=== PATIENT | female | born 1980 | race Two or more races ===

== ENCOUNTER 2022-07-10 11:29 | Outpatient (CLI) | payer OTHER, SELFPAY ==
--- OUTSIDE RECORDS SUMMARY | 2022-07-22 09:26 | XMS_ITS | Encounter Summary ---
:1980 Author Organization [facility] Address [address], [place] [address] Care Team Providers Name Role Phone No Primary/Referring, Phy Primary Care Provider Unavailable Reason for Visit Consult/Transfer Care (Routine) - Closed Specialty Diagnoses / Procedures Referred By Contact Refer red To Contact Diagnoses Adjustment disorder with mixed anxiety and depressed mood (HRC) Phyllis Weiss, [place] [address] [place], [place] [address] Referral ID Status Reason Start Date Expiration Date Visits Requ ested Visits Authorized [id number] Closed 11/12/2019 02/10/2021 1 1 Encounter Details Date Type Department Care Team Description 12/24/2019 Office Visit [facility] Bianca Ferguson Adju stment disorder Behavioral Sunny Cardoza PsyD, LP with mixed anxiety [address] [place] [place] [address] [address] (Primary Dx) [phone] [place], [place] [address] (Wo rk) Social History Tobacco Use Types Packs/Day Years Used Date Smoking Tobacco: Never Smokeless Tobacco: Never Alcohol Use Standard Drinks/Week Comments Yes 0 (1 standard drink = 0.6 oz pure alcoho l) Sex Assigned at Date Recorded Not on file documented as of this encounter Progress Notes Bianca Ferguson PsyD, LP - 12/24/2019 10:15 AM CST BEHAVIORAL HEALTH DIAGNOSTIC ASSESSMENT IDENTIFYING INFORMATION Length/type of session: Behavioral Health diagnostic assessment, start time: 10:20, end time: 11:13. Brianna Mckenna is a 39 y.o. old female presenting alone for psychotherapy intake. INFORMED CONSENT AND CONFIDENTIALITY: This grant writer's credentials and therapeutic style were discussedwith the patient. The purpose of the evaluation and subsequent counseling sessions were reviewed with the patient. Issues of confidentiality were clearly addressed. The patient expressed understanding of these issues and provided informed consent to proceed. REFERRAL DATA/PRESENTING PROBLEM Presenting problem: anxiety, depression and psychosocial issues Patient referred by: Phyllis Sorensen PCP HISTORY/DESCRIPTION OF PROBLEM(S) Patient is presenting today for individual therapy per the referral of her primary care provider. Patient indicated that she did seek out therapy on her own due to ongoing stress in her life. Patient indicated that the reason she seeking out behavioral health services today is to ???work through some long bring issues regarding family, career, and my patterns of behavior.?? Patient reported this hasbeen going on for over 10 years, but has come to the point where it is more significantly impacting her overall mental health. Patient indicated that a contributing factors that her parents moved from the [facility] to [place]. Patient indicated that she is not only dealing with issues related to aging parents, but personality characteristics in her mother that make it even more challenging. Patient described her mother as somebody who is ???narcissistic, manipulative, and controlling.?? Patient has attended therapy in the past, but maintained that she attended for 2 sessions due to the fact that it was not a good fit. Patient indicated that at times she has felt symptoms of depression and anxiety in the past, but maintained that tends to be more correlated to stress in regards to her career. Additionally, patient has felt this in correlation to both family of origin and family of [facility]. Patient her endorsed symptoms of depression such as sadness, depressed mood, hopelessness, fatigue, low energy, and some feelings of guilt that time. Patient reported that she does notice her anxiety more often than feeling down. 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 Patient indicated that she does recognize that in childhood and adolescent she tended to worry about others perceptions of her and had a hard time trusting others. On average, patient reported that she notices an anxious feeling approximately once per week. Patient endorsed symptoms of anxiety such as heightened anxiety, worry, rumination, sleep disruption (wakes up early), mild nervousness, and feeling overwhelmed. Patient denied any symptoms of panic attacks, joelle, PTSD, learning disabilities, developmental delays, chemical dependency issues, or eating disorders. REVIEW OF PROBLEM/SYMPTOMS PHQ-9 was administered, with a score of 5 DAVID-7 was administered, with a score of 2 AFFECTIVE SYMPTOMS Mood: depressed and worried, Insomnia: Wakes up early, Worthlessness: Reports some feelings of guilt, Suicide ideation: Denies and Self-injurious behavior: Patient reported that at times when she becomes so overwhelmed she will hit herself in the head. Patient indicated this happens maybe 5 or 6 times per year. This is particularly triggered when she is arguing with her . ANXIETY generalized (mild) ADHD - ATTENTION DEFICIT SYMPTOMS None BEHAVIOR PROBLEMS None PSYCHOSIS None OTHER CONCERNS None BEHAVIORAL HEALTH HISTORY Previous therapy: Attended 2 sessions for therapy in April of 2019 Previous psychiatry: None Previous psychiatric hospitalizations: None Previous diagnoses: Adjustment disorder with a mixture of anxiety and depression Previous suicide attempts:None History of violence: None Access to firearms: No History of physical/sexual/abuse: None MEDICAL INFORMATION Primary care physician: No Primary/Referring Other physicians currently involved in care:None Current medical problems/diagnoses: None. Please see electronic medical record for complete information. Chronic pain:No Current medications: Outpatient Medications Prior to Visit Medication Sig Dispense Refill ??? fluticasone propionate (FLONASE) 50 MCG/ACT nasal solution Place 2 Sprays into both nostrils daily. ??? LOW-OGESTREL 0.3-30 MG-MCG tablet Take 1 Tablet by mouth daily. 3 No facility-administered medications prior to visit. CHEMICAL HEALTH HISTORY Tobacco use:None Caffeine use: On average, patient reported that she will have 2 or 3 cups of coffee per day Current substance use: no drugs. 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 Patient reported that they moved around after that. Patient indicated that she has always butted heads with her mother and described her father's more submissive. Patient indicated that her mom is ???narcissistic, manipulative, and controlling.?? Patient has an older [place] who is somewhat disengage from the family. Current living situation: with spouse in house in [place], [place] Significant relationships/marriages: Patient met her in 2006 and they got in 2013 Children: None Family history of psychiatric problems: Alzheimer's-paternal grandfather, manic depressive, mother, depression-mother Family history of substance abuse problems: Alcohol abuse-mother Employment/school history: Patient obtained her undergraduate degree from [employer]. She obtained her master's in [employer] art from [employer]. 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 status: None Additional services: None Amish/spiritual beliefs:None MENTAL STATUS EXAMINATION Appearance: alert, neatly groomed Behavior: cooperative, engaged Motor: normal Gait and Station: normal Speech: normal in rate and loudness Language: intact Thought process: logical and goal-directed Thought content: without delusions, hallucinations or suicidal ideation Associations: intact Mood: anxious, sad Affect: anxious and tearful Orientation: intact Attention: intact Memory: intact Fund of Knowledge: intact Insight: intact Judgement: intact ASSESSMENT Risk of harm to self: none Risk of harm to others: none Based on this intake, the patient has the following diagnoses: Adjustment Disorder with a Mixture of Anxiety and Depression R/o Other Specified Anxiety Clinician's Summary: Patient is presenting today for individual therapy per the referral of her primary care provider. Patient indicated that the reason she seeking out behavioral health services todayis to ???work through some long bring issues regarding family, career, and my patterns of behavior.?? Patient reported this has been going on for over 10 years, but has come to the point where it is more significantly impacting her overall mental health. Patient indicated that at times she has felt symptoms of depression and anxiety in the past, but maintained that tends to be more correlated to stress in regards to her career. Additionally, patient has felt this in correlation to both family of origin and family of creation dynamics. Patient her endorsed symptoms of depression such as sadness, depressed mood, hopelessness, fatigue, low energy, and some feelings of guilt that time. Patient reported that she does notice her anxiety more often than feeling down. 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 Patient indicated that she does recognize that in childhood and adolescent she tended to worry about others perceptions of her and had a hard time trusting others. On average, patient reported that she notices an anxious feeling approximately once per week. Patient endorsed symptoms of anxiety such as heightened anxiety, worry, rumination, sleep disruption (wakes up early), mild nervousness, and feeling overwhelmed. At this time, symptom endorsement by the patient provide support for the diagnosis of an adjustment disorder with a mixture of depression and anxiety. Further investigation into a separate distinct other specified anxiety disorder would occur and ongoing sessions. Clinician did talk with patient about the trajectory of therapy, which would be limited with this provider due to unexpected medical leave end of January. Patient is commuting from [place] and provider gave some recommendations a therapist closer within that area. Patient was welcome to continue therapy with this provider until I go on medically. Clinician also talked about theoretical orientation, expectations for therapy, and limits for confidentiality. Patient was encouraged to return for therapy in approximately 1-2 weeks if she would like to pursue therapy at this particular location. Client reports symptoms of depression and anxiety present Periodically in correlation to stressors with mild intensity, and lead to functional impairment in the following areas: home, occupational, relational and social. INITIAL PLAN Goal 1: Decrease Anxiety by 50% in next 180 days Intervention: Identify 3-5 behavioral and cognitive skills to use to help decreased symptoms. Homework: Monitor triggers, mood, thought process and journal about coping used. Progress: Minimal Goal 2: Decrease Depression by 50% in next 180 days Intervention: Identify 3-5 behavioral and cognitive skills to use to help decreased symptoms. Homework: Monitor triggers, mood, thought process and journal about coping used. Progress: Minimal Anticipated length of treatment: 6-10 sessions. Referrals/Collaboration: primary care physician Bianca Ferguson PsyD, This note was created using speech-recognition software and may contain unintended word substitutions. As a result, wrong word or '[id number]' substitutions may have occurred due to the inherent limitations of voice recognition software. There may be errors in the script that have gone undetected. Please consider this when interpreting information found in this chart. ETIZER OPERATOR documented in this encounter Plan of Treatment Scheduled Referrals Name Type Priority Associated Diagnoses Order S chedule Behavioral Health Referral Routine Adjustment disorder wit h Ordered: 11/12/2019 mixed anxiety and depressed mood documented as of this encounter Visit Diagnoses Diagnosis Adjustment disorder with mixed anxiety a nd depressed mood (HRC) - Primary Adjustment disorder with mixed anxiety a nd depressed mood documented in this encounter Care Teams Security Infrastructure Engineer Relationship Specialty Start Date End Date No Primary/Referring, Phy PCP - General 11/01/19 documented as of this encounter
--- OUTSIDE RECORDS SUMMARY | 2022-07-22 09:26 | XMS_ITS | Clinical Summary ---
:1980 Author Organization [facility] [place] [address] Care Team Providers Name Role Phone Suma Chan MD Primary Care Provider Allergies Active Allergy Reactions Severity Noted Date Comments Penicillins 04/06/2010 Sulfa (Sulfonamide Antibiotics) Hives 7 Medications Medication Sig Dispensed Refills Start Date End Date Status fluticasone (50 mcg per Inhale 1 [place] 1 Bottle 0 05/26/2015 Active actuation) nasal into both solution nostrils once (FLONASE)Indications: daily. Will call Environmental allergies for refill montelukast (SINGULAIR) Take 1 tablet by 90 tablet 3 5 Active 10 mg mouth once daily. tabletIndications: Allergic rhinitis, unspecified allergic rhinitis type norgestrel-ethinyl Take 1 tablet by 84 tablet 0 05/03/2016 Active estradiol, 0.3-30 mouth once daily. mg-mcg, (LOW-OGESTREL) Will call for 0.3-30 mg-mcg refills tabletIndications: Encounter for surveillance of contraceptive pills Active Problems Problem Noted Date Environmental allergies 04/06/2010 Immunizations Name Administration Dates Next Due Hepatitis A (Adult) 11/01/2008, 05/01/2008 Hepatitis B (Adult) 09/09/1997, 04/10/1997, 03/12/1997 Td (Age >=7 Years) 05/11/2000 Tdap 05/01/2008 Tuberculin (PPD) 03/12/1997 Typhoid (injectable) 03/15/2011 Family History Medical History Relation Name Comments Hyperlipidemia Father Hypertension Father Other Mother cysts in breasts that are benign Cancer-breast Paternal Grandmother diagnosed i n 40s Hypertension Paternal Uncle Relation Name Status Comments Father Mother Paternal Grandmother Paternal Uncle Social History Tobacco Use Types Packs/Day Years Used Date Never Smoker Smokeless Tobacco: Never Used Tobacco Cessation: Counseling Given: Yes Alcohol Use Standard Drinks/Week Comments Yes 0 (1 standard drink = 0.6 oz pure alcoho l) weekends Alcohol Habits Answer Date Recorded How often do you have a drink containing alcohol? Not asked How many drinks containing alcohol do you have on a typical Not asked day when you are drinking? How often do you have six or more drinks on one occasion? No t asked Comment: weekends 05/26/2015 Sex Assigned at Date Recorded Not on file Obstetrics History Para Term AB IAB SAB Ectopic Multiple Living Live Births 0 0 0 0 0 0 0 0 0 0 Last Filed Vital Signs Vital Sign Reading Time Taken Comments Blood Pressure 124/82 07/01/2015 3:40 PM CDT Pulse 80 07/01/2015 3:40 PM CDT Temperature 36.8 ??C (98.3 ??F) 07/01/2015 3:40 PM CDT Respiratory Rate - - Oxygen Saturation 99% 07/01/2015 3:40 PM CDT Inhaled Oxygen Concentration - - Weight 70 kg (154 lb 6.4 oz) 07/01/2015 3:40 PM CDT Height 167.7 cm (5' 6.04) 07/01/2015 3:40 PM CDT Body Mass Index 24.89 07/01/2015 3:40 PM CDT Plan of Treatment Health Maintenance Due Date Last Done Comments COVID-19 vaccine series (#1) 1980 Depression screening for age 12+ 1991 BMI (ht and wt on same day) for 1997 age 18+ Hepatitis C screening for age 0301/15/1997 18-79 Tetanus booster 05/01/2018 05/01/2008, 05/11/2000 Pap test for age 21-65 07/13/2021 07/13/2018, 07/13/2018, 05/26/2015, Additional history exists Influenza for age 9-49 06/23/2022 Tdap Completed 05/01/2008 Results Not on filefrom Last 3 Months Insurance Payer Benefit Plan / Subscriber ID Effective Dates Phone Addre ss Type Group [employer] [id number] 2014-Present [address] [place] [address] (Home) [place] [address] Care Teams Flume Worker Relationship Specialty Start Date End Date Suma Chan MD PCP - General Internal Medicine 06/29/18
--- OUTSIDE RECORDS SUMMARY | 2022-07-22 09:26 | XMS_ITS | Encounter Summary ---
:1980 Author [facility] Address [address], [place] [address] Care Team Providers Name Role Phone No Primary/Referring, Phy Primary Care Provider Unavailable Reason for Referral Consult/Transfer Care (Routine) - Closed Specialty Diagnoses / Procedures Referred By Contact Refer red To Contact Diagnoses Adjustment disorder with mixed anxiety and depressed mood (HRC) Phyllis Weiss PA-C [address] [place], [place] [address] Referral ID Status Reason Start Date Expiration Date Visits Requ ested Visits Authorized [id number] Closed 11/12/2019 02/10/2021 1 1 Scheduling Instructions Your provider has recommended an appoint ment with Behavioral Health. You may call [phone] to schedule your appointmen t. This recommended service/s may not be covered by your health plan (health insu vika). To find out your specific benefit coverage, please call the number on your insurance card.?? Please note that in order to maintain access for all patients, [facility] does have a late cancellation policy.?? In order to avoid being restri cted from scheduling future appointments in Behavioral Health you will need to cance l at least 48 hours in advance. We request you that you arrive 30 minutes before yo ur first appointment to complete paperwork. SERVICE DEMONSTRATOR Reason for Visit Reason Comments Establish Care REFERRAL REQUEST Health Maintenance Communication Encounter Details Date Type Department Care Team Description 11/12/2019 Office Visit [facility] Phyllis Weiss, Adj ustment disorder Practice PA-C with mixed anxiety and [address] [facility] [address] depressed mood [place], [place] ([place] Dx) [id number] Social History Tobacco Use Types Packs/Day Years Used Date Smoking Tobacco: Never Smokeless Tobacco: Never Alcohol Use Standard Drinks/Week Comments Yes 0 (1 standard drink = 0.6 oz pure alcoho l) Sex Assigned at Date Recorded Not on file documented as of this encounter Last Filed Vital Signs Vital Sign Reading Time Taken Comments Blood Pressure 126/80 11/12/2019 2:30 PM HOME SERVICE DEMONSTRATOR Pulse 63 11/12/2019 2:30 PM HOME SERVICE DEMONSTRATOR Temperature 36.7 ??C (98 ??F) 11/12/2019 2:30 PM HOME SERVICE DEMONSTRATOR Respiratory Rate 12 11/12/2019 2:30 PM HOME SERVICE DEMONSTRATOR Oxygen Saturation - - Inhaled Oxygen Concentration - - Weight 75.4 kg (166 lb 4 oz) 11/12/2019 2:30 PM HOME SERVICE DEMONSTRATOR Height 167.6 cm (5' 6) 11/12/2019 2:30 PM HOME SERVICE DEMONSTRATOR Body Mass Index 26.83 11/12/2019 2:30 PM HOME SERVICE DEMONSTRATOR documented in this encounter Progress Notes Phyllis Weiss PA-C - 11/12/2019 2:20 PM CST Historical: Chief Complaint Patient presents with ??? Establish Care ??? REFERRAL REQUEST BH ??? Health Maintenance Communication Pt is here today to establish care and to get a referral for BH. Past couple of years has had gradually worsening mood symptoms. Her parents moved to [place] from the [facility] to be closer to her. 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 No past diagnosis of depression or anxiety. No therapy or medication. Not interested in medications at this time. I have personally reviewed the patient's allergies, medications and past medical history in detail and updated the patient record as necessary. Observed: BP 126/80 (BP Location: Right Arm, BP Cuff Size: Large) Pulse 63 Temp 98 ??F (36.7 ??C) (Oral) Resp 12 Ht 5' 6 (1.676 m) Wt 166 lb 4 oz (75.4 kg) BMI 26.83 kg/m?? Physical Exam: General Appearance: alert, well appearing and in no apparent distress. Tearful at times. Neurologic: normal speech and alert and oriented x 3 Psychiatric: affect/mood normal, cooperative, normal judgement/insight and memory intact Assessment/Plan: Adjustment disorder with mixed anxiety and depressed mood (HRC) - Behavioral Health Consider BTB Reach out if she changes her mind regarding medications. Adequate sleep, water, diet, regular exercise. Please see orders and patient instructions Phyllis Weiss PA-C SERVICE DEMONSTRATOR documented in this encounter Plan of Treatment Scheduled Referrals Name Type Priority Associated Diagnoses Order [facility] Behavioral Health Referral Routine Adjustment disorder wit h Ordered: 11/12/2019 mixed anxiety and depressed mood documented as of this encounter Visit Diagnoses Diagnosis Adjustment disorder with mixed anxiety a nd depressed mood (HRC) - Primary Adjustment disorder with mixed anxiety a nd depressed mood documented in this encounter Care Teams Cream Ripener Relationship Specialty Start Date End Date No Primary/Referring, Ramony PCP - General 11/01/19 documented as of this encounter
== END 2022-07-10 11:30 | disposition home or self-care (01) ==
LOC: NFLDREF 07-22 09:25
PROVIDERS: PCP Internal Medicine; Visit Provider Nurse Practitioner Family
DX: R30.0 Dysuria (principal); N39.0 Urinary tract infection, site not specified
CPT/HCPCS: 87086; 87186

== ENCOUNTER 2022-07-22 10:04 | Outpatient (CLI) | payer OTHER, SELFPAY ==
--- OUTSIDE RECORDS SUMMARY | 2022-07-22 10:14 | XMS_ITS | Encounter Summary ---
:1980 Author Organization [facility] Address [address], [place] [address] Care Team Providers Name Role Phone No Primary/Referring, Phy Primary Care Provider Unavailable Reason for Referral Consult/Transfer Care (Routine) - Closed Specialty Diagnoses / Procedures Referred By Contact Refer red To Contact Diagnoses Adjustment disorder with mixed anxiety and depressed mood (HRC) Phyllis Weiss PA-C [address] [place], [place] [address] Referral ID Status Reason Start Date Expiration Date Visits Requ ested Visits Authorized [id number] Closed 11/12/2019 02/10/2021 1 1 Scheduling Instructions Your provider has recommended an appoint ment with Behavioral Health. You may call [phone] to schedule your appointmen t. This recommended service/s may not be covered by your health plan (health insu vika). To find out your specific benefit coverage, please call the number on your insurance card.?? Please note that in order to maintain access for all patients, [facility] does have a late cancellation policy.?? In order to avoid being restri cted from scheduling future appointments in Behavioral Health you will need to cance l at least 48 hours in advance. We request you that you arrive 30 minutes before yo ur first appointment to complete paperwork. RIMENTAL ELECTRONICS DEVELOPER Reason for Visit Reason Comments Establish Care REFERRAL REQUEST Health Maintenance Communication Encounter Details Date Type Department Care Team Description 11/12/2019 Office Visit [facility] Phyllis Weiss, Adj ustment disorder Practice PA-C with mixed anxiety and [address] [facility] [address] depressed mood [place], [place] ([place]) [id number] Social History Tobacco Use Types Packs/Day Years Used Date Smoking Tobacco: Never Smokeless Tobacco: Never Alcohol Use Standard Drinks/Week Comments Yes 0 (1 standard drink = 0.6 oz pure alcoho l) Sex Assigned at Date Recorded Not on file documented as of this encounter Last Filed Vital Signs Vital Sign Reading Time Taken Comments Blood Pressure 126/80 11/12/2019 2:30 PM EXPERIMENTAL ELECTRONICS DEVELOPER Pulse 63 11/12/2019 2:30 PM EXPERIMENTAL ELECTRONICS DEVELOPER Temperature 36.7 ??C (98 ??F) 11/12/2019 2:30 PM EXPERIMENTAL ELECTRONICS DEVELOPER Respiratory Rate 12 11/12/2019 2:30 PM EXPERIMENTAL ELECTRONICS DEVELOPER Oxygen Saturation - - Inhaled Oxygen Concentration - - Weight 75.4 kg (166 lb 4 oz) 11/12/2019 2:30 PM EXPERIMENTAL ELECTRONICS DEVELOPER Height 167.6 cm (5' 6) 11/12/2019 2:30 PM EXPERIMENTAL ELECTRONICS DEVELOPER Body Mass Index 26.83 11/12/2019 2:30 PM EXPERIMENTAL ELECTRONICS DEVELOPER documented in this encounter Progress Notes Phyllsi Weiss PA-C - 11/12/2019 2:20 PM CST Historical: Chief Complaint Patient presents with ??? Establish Care ??? REFERRAL REQUEST BH ??? Health Maintenance Communication Pt is here today to establish care and to get a referral for BH. Past couple of years has had gradually worsening mood symptoms. Her parents moved to [place] from the [facility] to be closer to her. She [...] orders and patient instructions Phyllis Weiss PA-C RIMENTAL ELECTRONICS DEVELOPER documented in this encounter Plan of Treatment Scheduled Referrals Name Type Priority Associated Diagnoses Order S [facility] Behavioral Health Referral Routine Adjustment disorder wit h Ordered: 11/12/2019 mixed anxiety and depressed mood documented as of this encounter Visit Diagnoses Diagnosis Adjustment disorder with mixed anxiety a nd depressed mood (HRC) - Primary Adjustment disorder with mixed anxiety a nd depressed mood documented in this encounter Care Teams Relay Telegrapher Relationship Specialty Start Date End Date No Primary/Referring, Ramony PCP - General 11/01/19 documented as of this encounter
--- OUTSIDE RECORDS SUMMARY | 2022-07-22 10:14 | XMS_ITS | Clinical Summary ---
:1980 Author Organization [facility] [place] [address] Care Team Providers Name Role Phone Suma Chan MD Primary Care Provider Allergies Active Allergy Reactions Severity Noted Date Comments Penicillins 04/06/2010 Sulfa (Sulfonamide Antibiotics) Hives 7 Medications Medication Sig Dispensed Refills Start Date End Date Status fluticasone (50 mcg per Inhale 1 [place] 1 Bottle 0 05/26/2015 Active actuation) nasal [...] Addre ss Type Group [facility] HP [id number] 2014-Present [address] [place] [address] (Home) [place] [address] Care Teams Pantry Worker Relationship Specialty Start Date End Date Suma Chan MD PCP - General Internal Medicine 06/29/18
--- OUTSIDE RECORDS SUMMARY | 2022-07-22 10:14 | XMS_ITS | Clinical Summary ---
:1980 Author Organization [facility] Address [address], [place] [address] Care Team Providers Name Role Phone No Primary/Referring, Phy Primary Care Provider Unavailable Source Comments You are receiving this document as you are listed as the primary care provider,follow-up provider, or the patient has been referred to you for consultation.This is in compliance with the Medicare and Medicaid EHR Incentive Program,which states Providers who transition their patient to another setting of careor provider of care or refers their patient to another provider of care shouldprovide summarycare record for each transition of care or referral. [facility] Allerg[facility] Active Allergy Reactions Severity Noted Date Comments Penicillins Other, see comments 11/12/2019 Told whe n she had allergy testing Sulfa Antibiotics Hives High 11/12/2019 Medications Medication Sig Dispensed Refills Start Date End Date Status LOW-OGESTREL 0.3-30 Take 1 Tablet by 3 10/14/2019 Active MG-MCG tablet mouth daily. fluticasone propionate Place 2 Sprays 0 Active (FLONASE) 50 MCG/ACT into both nostrils nasal solution daily. Active Problems No known active problems Immunizations Name Administration Dates Next Due Flublok (RIV4) 07/18/2019 Tdap 07/13/2018, 05/01/2008 Social History Tobacco Use Types Packs/Day Years Used Date Smoking Tobacco: Never Smokeless Tobacco: Never Alcohol Use Standard Drinks/Week Comments Yes 0 (1 standard drink = 0.6 oz pure alcoho l) Sex Assigned at Date Recorded Not on file Last Filed Vital Signs Vital Sign Reading Time Taken Comments Blood Pressure 126/80 11/12/2019 2:30 PM DIRECTOR OF STUDENT FINANCIAL SERVICES Pulse 63 11/12/2019 2:30 PM DIRECTOR OF STUDENT FINANCIAL SERVICES Temperature 36.7 ??C (98 ??F) 11/12/2019 2:30 PM DIRECTOR OF STUDENT FINANCIAL SERVICES Respiratory Rate 12 11/12/2019 2:30 PM DIRECTOR OF STUDENT FINANCIAL SERVICES Oxygen Saturation - - Inhaled Oxygen Concentration - - Weight 75.4 kg (166 lb 4 oz) 11/12/2019 2:30 PM DIRECTOR OF STUDENT FINANCIAL SERVICES Height 167.6 cm (5' 6) 11/12/2019 2:30 PM DIRECTOR OF STUDENT FINANCIAL SERVICES Body Mass Index 26.83 11/12/2019 2:30 PM DIRECTOR OF STUDENT FINANCIAL SERVICES Plan of Treatment Health Maintenance Due Date Last Done Comments Hep C Screening (Preventive 1980 Services) HepB (1) 1980 COVID-19 Vaccine (#1) 1980 HIV Screening (Preventive 1995 Services) Adult Preventive Visit 1997 Mammogram 11/12/2020 11/12/2019 (Completed) Influenza (#1) 2022 07/06/2020, 07/18/2019, 07/13/2018, Additional history exists Pap 07/13/2023 07/13/2018 (Completed) DTaP/Tdap/Td (3 - Tdap) 07/13/2028 07/13/2018, 05/01/2008, 05/11/2000 Zoster/Shingles (1 of 2) 2029 HepA Aged Out 11/01/2008, 05/01/2008 No longer eligible based on patient 's age to complete this topic HPV Vaccine Aged Out No longer eligib le based on patient 's age to complete this topic Hib Aged Out No longer eligib le based on patient 's age to complete this topic IPV (Polio) Aged Out No longer eligib le based on patient 's age to complete this topic MCV4 Aged Out No longer eligib le based on patient 's age to complete this topic Pneumococcal Aged Out No longer eligib le based on patient 's age to complete this topic Insurance Payer Benefit Plan / Subscriber ID Effective Dates Phone Addre ss Type Group [facility] SELF INSURED [id number] 2014-Present Commercial Care Teams Mailing Specialist Relationship Specialty Start Date End Date No Primary/Referring, Phy PCP - General 11/01/19
--- OUTSIDE RECORDS SUMMARY | 2022-07-22 10:14 | XMS_ITS | Encounter Summary ---
:1980 Author Organization [facility] Address [address] [address] Care Team Providers Name Role Phone No Primary/Referring, Phy Primary Care Provider Unavailable Reason for Visit Consult/Transfer Care (Routine) - Closed Specialty Diagnoses / Procedures Referred By Contact Refer red To Contact Diagnoses Adjustment disorder with mixed anxiety and depressed mood (HRC) Phyllis Weiss, SUNNY [address] [place], [place] [address] Referral ID Status Reason Start Date Expiration Date Visits Requ ested Visits Authorized [id number] Closed 11/12/2019 02/10/2021 1 1 Encounter Details Date Type Department Care Team Description 12/24/2019 Office Visit [facility] Bianca Ferguson Adju stment disorder Behavioral Sunny Cardoza PsyD, LP with mixed anxiety [address] [place] [address] [address] (Primary Dx) [phone] [place], [place] [address] (Wo rk) Social History [...] psychotherapy intake. INFORMED CONSENT AND CONFIDENTIALITY: This check writer salesperson's credentials and therapeutic style were discussedwith the [...] factors that her parents moved from the [facility] to [place]. Patient indicated that she is not only [...] family of origin and family of [facility]. 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 [...] living situation: with spouse in house in [place], [place] Significant relationships/marriages: Patient met her in 2006 and they got in 2013 Children: None Family history of psychiatric problems: Alzheimer's-paternal grandfather, manic depressive, mother, depression-mother Family history of substance abuse problems: Alcohol abuse-mother Employment/school history: Patient obtained her undergraduate degree from [employer]. She obtained her master's in [email or web address] art from [employer]. 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 Patient indicated that she does recognize that [...] end of January. Patient is commuting from [place] and provider gave some recommendations a therapist [...] substitutions. As a result, wrong word or '[id number]-j-[id number]' substitutions may have occurred due to the inherent limitations of voice recognition software. There may be errors in the script that have gone undetected. Please consider this when interpreting information found in this chart. RIAL RECLAIMER documented in this encounter Plan of Treatment [...] mood documented in this encounter Care Teams Haulpak Driver Relationship Specialty Start Date End Date No Primary/Referring, Phy PCP - General 11/01/19 documented as of this encounter
== END 2022-07-22 10:05 | disposition home or self-care (01) ==
LOC: NFLDREF 10:05
PROVIDERS: PCP Internal Medicine; Visit Provider Family Medicine
DX: N39.0 Urinary tract infection, site not specified (principal)
CPT/HCPCS: 87086

== ENCOUNTER 2022-09-12 08:04 | Outpatient (CLI) | payer OTHER, SELFPAY ==
--- OUTSIDE RECORDS SUMMARY | 2022-09-12 08:07 | XMS_ITS | Clinical Summary ---
:1980 Author Organization [facility] [place] [address] Care Team Providers Name Role Phone Suma Chan MD Primary Care Provider Allergies Active Allergy Reactions Severity Noted Date Comments Penicillins 04/06/2010 Sulfa (Sulfonamide Antibiotics) Hives 7 Medications Medication Sig Dispensed Refills Start Date End Date Status fluticasone (50 mcg per Inhale 1 [place] 1 Bottle 0 05/26/2015 Active actuation) nasal [...] Addre ss Type Group [facility] [employer] HP [id number] 2014-Present [address] [place] [address] (Home) [place] [address] Care Teams Milk Pickup Driver Relationship Specialty Start Date End Date Suma Chan MD PCP - General Internal Medicine 06/29/18
--- OUTSIDE RECORDS SUMMARY | 2022-09-12 08:07 | XMS_ITS | Encounter Summary ---
:1980 Author Organization [facility] Address [address] [place] [address] Care Team Providers Name Role Phone No Primary/Referring, Phy Primary Care Provider Unavailable Reason for Referral Consult/Transfer Care (Routine) - Closed Specialty Diagnoses / Procedures Referred By Contact Refer red To Contact Diagnoses Adjustment disorder with mixed anxiety and depressed mood (HRC) Phyllis Weiss PA-C [address] [place], [place] [address] Referral ID Status Reason Start Date Expiration Date Visits Requ ested Visits Authorized [id number] Closed 11/12/2019 02/10/2021 1 1 Scheduling Instructions Your provider has recommended an appoint ment with Behavioral Health. You may call [phone] to schedule your appointmen t. This recommended service/s may not be covered by your health plan (health insu vika). To find out your specific benefit coverage, please call the number on your insurance card.?? Please note that in order to maintain access for all patients, [facility] does have a late cancellation policy.?? In order to avoid being restri cted from scheduling future appointments in Behavioral Health you will need to cance l at least 48 hours in advance. We request you that you arrive 30 minutes before yo ur first appointment to complete paperwork. TECHNICIAN Reason for Visit Reason Comments Establish Care REFERRAL REQUEST Health Maintenance Communication Encounter Details Date Type Department Care Team Description 11/12/2019 Office Visit [facility] Phyllis Weiss, Adj ustment disorder Practice SUNNY with mixed anxiety and [address] [facility] [address] depressed mood [place], [place] ([place]x) [address] [phone] Social History Tobacco Use Types Packs/Day Years Used Date Smoking Tobacco: Never Smokeless Tobacco: Never Alcohol Use Standard Drinks/Week Comments Yes 0 (1 standard drink = 0.6 oz pure alcoho l) Sex Assigned at Date Recorded Not on file documented as of this encounter Last Filed Vital Signs Vital Sign Reading Time Taken Comments Blood Pressure 126/80 11/12/2019 2:30 PM LAB TECHNICIAN Pulse 63 11/12/2019 2:30 PM LAB TECHNICIAN Temperature 36.7 ??C (98 ??F) 11/12/2019 2:30 PM LAB TECHNICIAN Respiratory Rate 12 11/12/2019 2:30 PM LAB TECHNICIAN Oxygen Saturation - - Inhaled Oxygen Concentration - - Weight 75.4 kg (166 lb 4 oz) 11/12/2019 2:30 PM LAB TECHNICIAN Height 167.6 cm (5' 6) 11/12/2019 2:30 PM LAB TECHNICIAN Body Mass Index 26.83 11/12/2019 2:30 PM LAB TECHNICIAN documented in this encounter Progress Notes Phyllis Weiss PA-C - 11/12/2019 2:20 PM CST Historical: Chief Complaint Patient presents with ??? Establish Care ??? REFERRAL REQUEST BH ??? Health Maintenance Communication Pt is here today to establish care and to get a referral for BH. Past couple of years has had gradually worsening mood symptoms. Her parents moved to [place] from the [facility] to be [...] orders and patient instructions Phyllis Weiss PA-C TECHNICIAN documented in this encounter Plan of Treatment Scheduled Referrals Name Type Priority Associated Diagnoses Order S [facility] Behavioral Health Referral Routine Adjustment disorder wit h Ordered: 11/12/2019 mixed anxiety and depressed mood documented as of this encounter Visit Diagnoses Diagnosis Adjustment disorder with mixed anxiety a nd depressed mood (HRC) - Primary Adjustment disorder with mixed anxiety a nd depressed mood documented in this encounter Care Teams Bingo Usher Relationship Specialty Start Date End Date No Primary/Referring, Phy PCP - General 11/01/19 documented as of this encounter
--- OUTSIDE RECORDS SUMMARY | 2022-09-12 08:07 | XMS_ITS | Encounter Summary ---
:1980 Author [facility] Address [address] [place] [address] Care Team Providers Name Role Phone No Primary/Referring, Phy Primary Care Provider Unavailable Reason for Visit Consult/Transfer Care (Routine) - Closed Specialty Diagnoses / Procedures Referred By Contact Refer red To Contact Diagnoses Adjustment disorder with mixed anxiety and depressed mood (HRC) Phyllis Weiss, PAJalynC [address] [place], [place] [address] Referral ID Status Reason Start Date Expiration Date Visits Requ ested Visits Authorized [id number] Closed 11/12/2019 02/10/2021 1 1 Encounter Details Date Type Department Care Team Description 12/24/2019 Office Visit [facility] Bianca Ferguson Adju stment disorder Behavioral Sunny Cardoza PsyD, LP with mixed anxiety [address] [place] [place] [address] [address] (Primary Dx) [phone] [place], [place] [address] (Wo rk) Social History [...] psychotherapy intake. INFORMED CONSENT AND CONFIDENTIALITY: This technical proposal writer's credentials and therapeutic style were discussedwith [...] factors that her parents moved from the [facility] to [place]. Patient indicated that she is not only [...] family of origin and family of creation [facility]. 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 [...] living situation: with spouse in house in [place], [place] Significant relationships/marriages: Patient met her in 2006 and they got in 2013 Children: None Family history of psychiatric problems: Alzheimer's-paternal grandfather, manic depressive, mother, depression-mother Family history of substance abuse problems: Alcohol abuse-mother Employment/school history: Patient obtained her undergraduate degree from [employer]. She obtained her master's in [employer] art from [employer]. 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 Patient indicated that she does recognize that [...] end of January. Patient is commuting from [place] and provider gave some recommendations a therapist [...] substitutions. As a result, wrong word or 'bfbpl-x-[id number]' substitutions may have occurred due to the inherent limitations of voice recognition software. There may be errors in the script that have gone undetected. Please consider this when interpreting information found in this chart. SACKER documented in this encounter Plan of Treatment Scheduled Referrals Name Type Priority Associated Diagnoses Order S [facility] Referral Routine Adjustment disorder wit h Ordered: 11/12/2019 mixed anxiety and depressed mood documented as of this encounter Visit Diagnoses Diagnosis Adjustment disorder with mixed anxiety a nd depressed mood (HRC) - Primary Adjustment disorder with mixed anxiety a nd depressed mood documented in this encounter Care Teams Library Assistant Relationship Specialty Start Date End Date No Primary/Referring, Phy PCP - General 11/01/19 documented as of this encounter
--- OUTSIDE RECORDS SUMMARY | 2022-09-12 08:07 | XMS_ITS | Clinical Summary ---
:1980 Author Organization [facility] Address [address], [place] [address] Care Team Providers Name Role Phone No [...] for each transition of care or referral. [facility] Allergies Active Allergy Reactions Severity Noted Date [...] Comments Blood Pressure 126/80 11/12/2019 2:30 PM LEAD PONY RIDER Pulse 63 11/12/2019 2:30 PM LEAD PONY RIDER Temperature 36.7 ??C (98 ??F) 11/12/2019 2:30 PM LEAD PONY RIDER Respiratory Rate 12 11/12/2019 2:30 PM LEAD PONY RIDER Oxygen Saturation - - Inhaled Oxygen Concentration - - Weight 75.4 kg (166 lb 4 oz) 11/12/2019 2:30 PM LEAD PONY RIDER Height 167.6 cm (5' 6) 11/12/2019 2:30 PM LEAD PONY RIDER Body Mass Index 26.83 11/12/2019 2:30 PM LEAD PONY RIDER Plan of Treatment Health Maintenance Due Date [...] Addre ss Type Group [employer] SELF INSURED [id number] 2014-Present Commercial Care Teams Joint Maker Machine Relationship Specialty Start Date End Date No Primary/Referring, Phy PCP - General 11/01/19
--- NOTE | 2022-09-12 08:15 | CRLHL7_ITS ---
For Patients: As a result of the Century Cures Act, medical imaging exams and procedure reports are released immediately into your electronic medical record. You may view this report before your referring provider. If you have questions, please contact your health care provider. BILATERAL SCREENING MAMMOGRAM WITH COMPUTER-AIDED DETECTION AND TOMOSYNTHESIS TECHNIQUE: CC and MLO views were obtained. These mammographic images have been obtained using full-field digital technique. These mammographic images were interpreted with the benefit of computer-aided detection. Breast Tomosynthesis was used in this interpretation. COMPARISON FILM: 09/09/21, 09/03/20, 07/24/19. FINDINGS: The breasts are heterogeneously dense, which may obscure small masses IMPRESSION: There is no radiographic evidence for malignancy. ASSESSMENT: BI-RADS Category 1: Negative RECOMMENDATION: Routine screening mammogram in 1 year. A lay language report of this examination will be provided to the patient. Vinod Whittington M.D. Diagnostic Radiologist [email or web address] BEN/Dictated by: Vinod Whittington MD @ 09/12/2022 9:37:00 AM (Electronically Signed)
== END 2022-09-12 08:05 | disposition home or self-care (01) ==
LOC: MAMMO 08:05
PROVIDERS: PCP Internal Medicine; Visit Provider Internal Medicine
DX: Z12.31 Encounter for screening mammogram for malignant neoplasm of breast (principal); R92.2 Inconclusive mammogram
CPT/HCPCS: 77063; 77067

== ENCOUNTER 2023-09-11 08:00 | Outpatient (CLI) | payer OTHER, SELFPAY | END 2023-09-11 08:01 | disposition home or self-care (01) | LOC: NFLDREF 09-15 10:33 | PROVIDERS: PCP Internal Medicine; Referring Provider Internal Medicine; Visit Provider Obstetrics & Gynecology | DX: Z00.00 Encounter for general adult medical examination without abnormal findings (principal); Z13.6 Encounter for screening for cardiovascular disorders | CPT/HCPCS: 80061 ==

== ENCOUNTER 2023-09-13 09:02 | Outpatient (CLI) | payer OTHER, SELFPAY ==
--- NOTE | 2023-09-13 09:15 | CRLHL7_ITS ---
For Patients: As a result of the Century Cures Act, medical imaging exams and procedure reports are released immediately into your electronic medical record. You may view this report before your referring provider. If you have questions, please contact your health care provider. BILATERAL SCREENING MAMMOGRAM WITH COMPUTER-AIDED DETECTION AND TOMOSYNTHESIS TECHNIQUE: CC and MLO views were obtained. These mammographic images have been obtained using full-field digital technique. These mammographic images were interpreted with the benefit of computer-aided detection. Breast Tomosynthesis was used in this interpretation. COMPARISON FILM: 09/12/22, 09/09/21, 09/03/20. FINDINGS: The breasts are heterogeneously dense, which may obscure small masses IMPRESSION: There is no radiographic evidence for malignancy. ASSESSMENT: BI-RADS Category 1: Negative RECOMMENDATION: Routine screening mammogram in 1 year. A lay language report of this examination will be provided to the patient. Vinod Whittington M.D. Diagnostic Radiologist [email or web address] BEN/Dictated by: Vinod Whittington MD @ 09/13/2023 1:27:00 PM (Electronically Signed)
== END 2023-09-13 09:03 | disposition home or self-care (01) ==
LOC: MAMMO 09:03
PROVIDERS: PCP Internal Medicine; Visit Provider Internal Medicine
DX: Z12.31 Encounter for screening mammogram for malignant neoplasm of breast (principal); R92.2 Inconclusive mammogram
CPT/HCPCS: 77063; 77067

== ENCOUNTER 2024-09-16 11:18 | Outpatient (CLI) | payer OTHER, SELFPAY ==
--- OUTSIDE RECORDS SUMMARY | 2024-09-16 11:22 | XMS_ITS | Clinical Summary ---
Author Organization [facility] Address [place], [place] [address] Care Team Providers Care Practicing Dermatologist Name Role Phone Suma Chan MD Primary Care Provider [phone] Allergies Active Allergy Reactions Criticality Noted Date Comments Penicillins 04/06/2010 Sulfa (Sulfonamide Antibiotics) Hives 07/23 Medications Medication Sig Dispensed Refills Start Date End Date Status fluticasone (50 mcg per actuation) nasal solution (FLONASE)Indications:E nvironmental allergies Inhale 1 Jackson into both nostrils once daily. Will call for refill 1 Bottle PRN 05/26/2015 Active montelukast (SINGULAIR) 10 mg tabletIndications:Chandra rgic rhinitis, unspecified allergic rhinitis type Take 1 tablet by mouth once daily. 90 tablet 3 07/01/2015 Active norgestrel-ethinyl estradiol, 0.3-30 mg-mcg, (LOW-OGESTREL) 0.3-30 mg-mcg tabletIndications:Enco unter for surveillance of contraceptive pills Take 1 tablet by mouth once daily. Will call for refills 84 tablet 0 05/03/2016 Active Active Problems Problem Noted Date Diagnosed Date Environmental allergies 04/06/2010 Immunizations Name Administration Dates Next Due Hepatitis A (Adult) 11/01/2008,05/01/2008 Hepatitis B (Adult) 09/09/1997,04/10/1997,1996 Td (Age >=7 Years) 05/11/2000 Tdap 05/01/2008 Tuberculin (PPD) 03/12/1997 Typhoid (injectable) 03/15/2011 Family History Medical History Relation Name Comments Hyperlipidemia Father Hypertension Father Other Mother cysts in breast s that are benign Cancer-breast Paternal Grandmother diagno sed in 40s Hypertension Paternal Uncle Relation Name Status Comments Father Mother Paternal Grandmother Paternal Uncle Social History Tobacco Use Types Packs/Day Years Used Date Smoking Tobacco: Never Smokeless Tobacco: Never Tobacco Cessation:Counseling Given: Yes Alcohol Use Standard Drinks/Week Comments Yes 0 (1 standard drink = 0.6 oz pur e alcohol) weekends Sex and Gender Information Value Date Recorded Sex Assigned at Not on file Gender Identity Not on file Sexual Orientation Not on file Obstetrics History Para Term AB IAB SAB Ectopic Multiple Livin g Live Births 0 0 0 0 0 0 0 0 0 0 Last Filed Vital Signs Vital Sign Reading Time Taken Comments Blood Pressure 124/82 07/01/2015 3:40 PM CDT Pulse 80 07/01/2015 3:40 PM CDT Temperature 36.8 C (98.3 F) 07/01/2015 3:40 PM CDT Respiratory Rate - - Oxygen Saturation 99% 07/01/2015 3:40 PM CDT Inhaled Oxygen Concentration - - Weight 70 kg (154 lb 6.4 oz) 07/01/2015 3:40 PM CDT Height 167.7 cm (5' 6.04) 07/01/2015 3:40 PM CD T Body Mass Index 24.89 07/01/2015 3:40 PM CDT Plan of Treatment Health Maintenance Due Date Last Done Comments Depression screening for age 12+ 1991 BMI (ht and wt on same day) for age 18+ 1997 Hepatitis C screening for age 18-79 1997 Tetanus booster 05/01/2018 05/01/2008, 05/11/2000 Colonoscopy through age 75 01/16/2024 Lipids for age 45-75 01/16/2024 05/13/2014, 04/02/2013, 03/07/2012, Additional history exists Mammogram for age 45-75 01/16/2024 COVID-19 vaccine series (2023- season) 2024 Influenza for age 9-49 06/23/2024 Pap test for age 21-65 09/07/2026 3, 07/13/2018, 07/13/2018, Additional history exists HIV for age 15-65 Completed 05/01/2008 Tdap Completed 05/01/2008 Pneumococcal series for age 6-64 Aged Out No longer eligible based on patient's age to complete this topic Procedures Procedure Name Priority Date/Time Associated Diagnosis Comments HPV HIGH RISK Routine 09/07/2023 8:45 AM CLIENT DEVELOPMENT DIRECTOR LIPID PANEL W REFLEX MEASURED LDL Routine 05/13/2014 8:35 AM CDT Screening, lipid ANTI HIV 1/2 Routine 05/01/2008 9:23 AM CDT Screening Exam Venereal Disease from Last 3 Months or Most Recently Relevant to Health Maintenance Results * HPV HIGH RISK (09/07/2023 8:45 AM CLIENT DEVELOPMENT DIRECTOR) TYPE 16 Negative Negative 09/09/2023 1:14 PM CLIENT DEVELOPMENT DIRECTOR [facility] TYPE 18 Negative Negative 09/09/2023 1:14 PM CLIENT DEVELOPMENT DIRECTOR [facility] OTHER HIGH RISK TYPES Negative Negative 09/09/2023 1:14 PM CLIENT DEVELOPMENT DIRECTOR [facility] Other (Cervical) 09/07/2023 8:45 AM CLIENT DEVELOPMENT DIRECTOR 09/07/2023 8:56 AM CLIENT DEVELOPMENT DIRECTOR Narrative [facility] - 09/09/2023 1:14 PM CLIENT DEVELOPMENT DIRECTOR HPV types 16, 18, 31, 33, 35, 39, 45, 51, 52, 56, 58, 59, 66 and 68 DNA were undetectable or below the pre-set threshold. Methodology: Patricia Waylon 4800 HPV Test Dorene Maral Rico MD [facility]CROBIOLOGY [facility] [address] [place] [address], * LIPID PANEL W REFLEX MEASURED LDL (05/13/2014 8:35 AM CDT) CHOLESTEROL,TOTAL 174 100 - 199 mg/dL 05/13/2014 9:02 AM CDT [facility] TRIGLYCERIDES 76 <150 mg/dL 05/13/2014 9:02 AM CDT [facility] HDL CHOLESTEROL 65 >40 mg/dL 4 9:02 AM CDT [facility] NON-HDL CHOLESTEROL 109 <145 mg/dl 05/13/2014 9:02 AM CDT [facility] CHOL/HDL RATIO 2.68 <4.50 05/13/2014 9:02 AM CDT [facility] LDL CHOLESTEROL 94 <=130 mg/dL 05/13/2014 9:02 AM CDT [facility] PATIENT STATUS FASTING 05/13/2014 9:02 AM CDT [facility] Blood specimen (specimen) BLOOD SPECIMEN / Unknown Venipuncture / Unknown 05/13/2014 8:35 AM CDT 05/13/2014 8:36 AM CDT Samantha Patel NP CHEMISTRY [facility] [address] [place] [address], * ANTI HIV 1/2 (05/01/2008 9:23 AM CDT) ANTI HIV 1/2 Non-reacti ve [facility] Blood specimen (specimen) BLOOD SPECIMEN / Unknown 05/01/2008 9:23 AM CDT 05/01/2008 9:16 AM CDT Samantha Patel NP SEND OUTS [facility] [place]NAL ZIP [address] [place] [id number] from Last 3 Months or Most Recently Relevant to Health Maintenance Care Teams Practicing Dermatologist Relationship Specialty Start Date End Date Suma Chan MD PCP - General Internal Medicine 06/29/18
--- OUTSIDE RECORDS SUMMARY | 2024-09-16 11:22 | XMS_ITS | Clinical Summary ---
Author Organization [facility] Address [address], [place] [address] Care Team Providers Care Course Instructor Name Role Phone No Primary/Referring, Phy Primary Care Provider Unavailable Source Comments You are receiving this document as you are listed as the primary care provider,follow-up provider, or the patient has been referred to you for consultation.This is in compliance with the Medicare and[facility] EHR Incentive Program,which states Providers who transition their patient to another setting of careor provider of care or refers their patient to another provider of care shouldprovide summary care record for each transition of care or referral. [facility] Allergies Active Allergy Reactions Criticality Noted Date Comments Penicillins Other, see comments 11/12/2019 Told when she had allergy testing Sulfa Antibiotics Hives High 11/12/2019 Medications Medication Sig Dispensed Refills Start Date End Date Status LOW-OGESTREL 0.3-30 MG-MCG tablet Take 1 Tablet by mouth daily. 3 10/14/2019 Active fluticasone propionate (FLONASE) 50 MCG/ACT nasal solution Place 2 Sprays into both nostrils daily. Active Active Problems No known active problems Immunizations Name Administration Dates Next Due Flublok (RIV4) 07/18/2019 Tdap 07/13/2018,05/01/2008 Social History Tobacco Use Types Packs/Day Years Used Date Smoking Tobacco: Never Smokeless Tobacco: Never Alcohol Use Standard Drinks/Week Comments Yes 0 (1 standard drink = 0.6 oz pur e alcohol) PHQ-2 Answer Date Recorded PHQ-2 Score 2 11/12/2019 Sex and Gender Information Value Date Recorded Sex Assigned at Not on file Gender Identity Not on file Sexual Orientation Not on file Last Filed Vital Signs Vital Sign Reading Time Taken Comments Blood Pressure 126/80 11/12/2019 2:30 PM PARTNERSHIP DEVELOPMENT MANAGER Pulse 63 11/12/2019 2:30 PM PARTNERSHIP DEVELOPMENT MANAGER Temperature 36.7 C (98 F) 11/12/2019 2:30 PM PARTNERSHIP DEVELOPMENT MANAGER Respiratory Rate 12 11/12/2019 2:30 PM PARTNERSHIP DEVELOPMENT MANAGER Oxygen Saturation - - Inhaled Oxygen Concentration - - Weight 75.4 kg (166 lb 4 oz) 11/12/2019 2:30 PM PARTNERSHIP DEVELOPMENT MANAGER Height 167.6 cm (5' 6) 11/12/2019 2:30 PM PARTNERSHIP DEVELOPMENT MANAGER Body Mass Index 26.83 11/12/2019 2:30 PM PARTNERSHIP DEVELOPMENT MANAGER Plan of Treatment Health Maintenance Due Date Last Done Comments Colon Cancer Screening Plan Due 1979 Hep C Screening (Preventive Services) 1979 HIV Screening (Preventive Services) 1995 Adult Preventive Visit 1997 HepB (1) 1998 Mammogram 11/12/2020 11/12/2019 (Completed) Cervical Cancer Screening 07/13/2023 07/13/2018 (Com pleted) Cholesterol 01/16/2024 COVID-19 Vaccine ( season) 2024 03/03/2021, 02/10/2021 Influenza (#1) 2024 07/06/2020, 06/24, 07/13/2018, Additional history exists DTaP/Tdap/Td (3 - Tdap) 07/13/2028 07/13/20 18, 05/01/2008, 05/11/2000 Zoster/Shingles (1 of 2) 2029 HepA Aged Out 11/01/2008, 05/01/2008 No lo nger eligible based on patient's age to complete this topic HPV Vaccine Aged Out No longer eligi ble based on patient's age to complete this topic Hib Aged Out No longer eligi ble based on patient's age to complete this topic IPV (Polio) Aged Out No longer eligi ble based on patient's age to complete this topic Infant RSV Aged Out No longer eligi ble based on patient's age to complete this topic MCV4 Aged Out No longer eligi ble based on patient's age to complete this topic Pneumococcal Aged Out No longer eligi ble based on patient's age to complete this topic Care Teams Course Instructor Relationship Specialty Start Date End Date No Primary/Referring, Phy PCP - General 11/01/19
--- NOTE | 2024-09-16 11:30 | CRLHL7_ITS ---
For Patients: As a result of the Century Cures Act, medical imaging exams and procedure reports are released immediately into your electronic medical record. You may view this report before your referring provider. If you have questions, please contact your health care provider. BILATERAL SCREENING MAMMOGRAM WITH COMPUTER-AIDED DETECTION AND TOMOSYNTHESIS TECHNIQUE: CC and MLO views were obtained. These mammographic images have been obtained using full-field digital technique. These mammographic images were interpreted with the benefit of computer-aided detection. Breast Tomosynthesis was used in this interpretation. COMPARISON FILM: 09/13/23, 09/12/22, 07/24/19. FINDINGS: The breasts are heterogeneously dense, which may obscure small masses IMPRESSION: There is no radiographic evidence for malignancy. ASSESSMENT: BI-RADS Category 1: Negative RECOMMENDATION: Routine screening mammogram in 1 year. A lay language report of this examination will be provided to the patient. Vinod Whittington M.D. Diagnostic Radiologist [email or web address] BEN/Dictated by: Vinod Whittington MD @ 09/16/2024 12:58:00 PM (Electronically Signed)
== END 2024-09-16 11:19 | disposition home or self-care (01) ==
LOC: MAMMO 11:18
PROVIDERS: PCP Internal Medicine; Visit Provider Internal Medicine
DX: Z12.31 Encounter for screening mammogram for malignant neoplasm of breast (principal); R92.333 Mammographic heterogeneous density, bilateral breasts
CPT/HCPCS: 77063; 77067

== ENCOUNTER 2024-11-22 10:04 | Outpatient (CLI) | payer BC, SELFPAY ==
[2024-11-25 15:22] LABS: HPV Source Cervical; HPV, High Risk by TMA Not Detected
== END 2024-11-22 10:05 | disposition home or self-care (01) ==
PROVIDERS: PCP Internal Medicine; Visit Provider Obstetrics & Gynecology
DX: Z12.4 Encounter for screening for malignant neoplasm of cervix (principal); Z11.51 Encounter for screening for human papillomavirus (HPV)
CPT/HCPCS: 87624; 87625; 88141; 88142